=== PATIENT | male | born 1955 | race Caucasian/White ===

== ENCOUNTER → 2016-09-23 07:52 | Outpatient (CLI) | payer BC | END | disposition home or self-care (01) | LOC: D.RAD 07:52 | DX: R13.10 Dysphagia, unspecified (principal) ==

== ENCOUNTER 2017-09-11 07:24 | Day surgery (SDC) | payer BC ==
[~2017-09-11] VITALS: Ht 180.3 cm; Wt 109.1 kg
--- NOTE | ~2017-09-11 | OP ---
PATIENT NAME: TWILA BULLOCK MEDICAL RECORD: [id number] :55 LOCATION:D.OPS ADMISSION DATE: SURGEON: LEROY FITZPATRICK MD DATE OF OPERATION: 09/11/2017 DATE OF OPERATION: 09/11/2017 PREOPERATIVE DIAGNOSES: 1. Gastroesophageal reflux disease. 2. Hiatal hernia. 3. Chronic obstructive pulmonary disease. 4. Hyperlipidemia. 5. Hypothyroidism. POSTOPERATIVE DIAGNOSES : 1. Gastroesophageal reflux disease. 2. Hiatal hernia. 3. Chronic obstructive pulmonary disease. 4. Hyperlipidemia. 5. Hypothyroidism. PROCEDURE: EGD with biopsy. SURGEON: Leroy Fitzpatrick MD REPORT OF PROCEDURE: An Olympus endoscope was advanced through the mouth and esophagus. We passed through the stomach and through the pylorus and into the second portion of the duodenum. There were no inflammatory changes, masses or ulcerations noted in the duodenum. As we pulled back, we could see the pylorus and again no masses, lesions or ulcerations were visualized. A random biopsy was taken of the antrum of the stomach. As we pulled back and looked at the body of the stomach, there was noted to be multiple hyperplastic polyps, but no cancers or adenomatous polyps or masses were seen. There were no ulcerations visualized as we retroflexed the camera, we could see there was a small hiatal hernia present. There was a lot of laxity to the GE junction. We pulled back to the GE junction, measured this out at approximately 40 cm from the teeth. The hiatal hernia looked to be anywhere from 2-4 cm in length, it was difficult to gauge with the patient's respirations. At the GE junction, there was a lot of inflammatory ulcerations with erosions visible. Biopsies were taken times 2 from the GE junction. As we pulled back the scope, there were some other areas of inflammation, the upper third of the esophagus with 2 small patches of inflammatory ulcerations visible. At this point, the insufflation and endoscope were removed. COMPLICATIONS: None. CONDITION: Stable. ANESTHESIA: TIVA. BLOOD LOSS: Minimal. TRANSINT:[id number] Voice Confirmation ID: [id number] DOCUMENT ID: [id number] OPERATIVE REPORT [id number] TWILA BULLOCK LEROY FITZPATRICK MD CC: VIGNESH BRAVO MD [id number] DICTATION DATE: 09/11/17 1232 ORDER PROCESSOR: 09/11/17 1323 REG [facility] [address] [id number]
[2017-09-11] MEDS ORDERED: PROTONIX40 MG PO (08:13)
[2017-09-11] MEDS ORDERED: LEVOTHYROXINE75 MCG PO (08:14)
[2017-09-11] MEDS ORDERED: MOBIC7.5 MG PO (08:14)
[2017-09-11] MEDS ORDERED: LIPITOR20 MG PO (08:14)
[2017-09-11] MEDS ORDERED: ADVAIR 250/501 DISK INH (08:15)
[2017-09-11] MEDS ORDERED: ZOLOFT50 MG PO (08:15)
[2017-09-11] MEDS ORDERED: BAYER CHEWABLE81 MG PO (08:16)
[2017-09-11] MEDS ORDERED: CLARITIN5 MG/5 ML PO (08:17)
[2017-09-11 08:26] VITALS: BP 138/99; Ht 180.3 cm; Wt 109.1 kg
[2017-09-11 08:29] LABS: BASOPHILS 0.4 % (0-2); HEMATOCRIT 44.9 % (42.0-54.0); LYMPHOCYTES 22.7 % (15-50); MCH 34.6 pg (26.0-34.0); MCHC 35.6 g/dL (31.0-37.0); MEAN PLATELET VOLUME 8.7 fL (7.4-10.4); MONOCYTES 8.7 % (2-11); NEUTROPHILS 63.2 % (40-80); PLATELET COUNT 172 10x3/uL (130-400); RBC 4.63 10x6/uL (4.20-6.10); RDW 11.9 % (11.5-14.5); WBC 4.6 10x3/uL (4.8-10.8)
[2017-09-11 08:44] LABS: CALC OSMOLALITY 280 mosm/kg (275-300); CALCIUM 8.8 mg/dL (8.5-10.1); CARBON DIOXIDE 27.3 mmol/L (21.0-32.0); CHLORIDE - SERUM 105 mmol/L (98-107); GLUCOSE 107 mg/dL (74-106); POTASSIUM - SERUM 4.1 mmol/L (3.5-5.1); SODIUM 139 mmol/L (136-145); UREA NITROGEN 22 mg/dL (7-18); eGFR NON AFRICAN AMERICAN 80 mL/min (90-120)
== END 2017-09-11 13:25 | disposition home or self-care (01) ==
LOC: D.OPS 07:24
PROVIDERS: Surgery
DX: K21.9 Gastro-esophageal reflux disease without esophagitis (principal); K44.9 Diaphragmatic hernia without obstruction or gangrene; J44.9 Chronic obstructive pulmonary disease, unspecified; E78.5 Hyperlipidemia, unspecified; E03.9 Hypothyroidism, unspecified; Z01.812 Encounter for preprocedural laboratory examination

== ENCOUNTER 2017-09-22 07:02 | Outpatient (CLI) | payer BC ==
[2017-09-11 08:26] VITALS: BMI 33.5
[~2017-09-22 07:02] MED LIST: ADVAIR 250/501 DISK INH; BAYER CHEWABLE81 MG PO; CLARITIN5 MG/5 ML PO; LEVOTHYROXINE75 MCG PO; LIPITOR20 MG PO; MOBIC7.5 MG PO; PROTONIX40 MG PO; ZOLOFT50 MG PO
== END 2017-09-22 08:20 ==
LOC: D.OPS 07:02
DX: K21.9 Gastro-esophageal reflux disease without esophagitis (principal)

== ENCOUNTER 2017-09-24 09:07 | Day surgery (SDC) | payer BC ==
[~2017-09-24] VITALS: Ht 180.3 cm; Wt 112.8 kg
--- NOTE | ~2017-09-24 | OP ---
PATIENT NAME: TWILA BULLOCK MEDICAL RECORD: [id number] :55 LOCATION:[facility] ADMISSION DATE: SURGEON: JASEN FITZPATRICK MD DATE OF OPERATION: 09/24/2017 PREOPERATIVE DIAGNOSES: 1. Gastroesophageal reflux disease. 2. Hiatal hernia. 3. Chronic obstructive pulmonary disease. 4. Hypertension. 5. Hypothyroidism. POSTOPERATIVE DIAGNOSES: 1. Gastroesophageal reflux disease. 2. Hiatal hernia. 3. Chronic obstructive pulmonary disease. 4. Hypertension. 5. Hypothyroidism. PROCEDURE: Laparoscopic Elda fundoplication with hiatal hernia repair. SURGEON: Jasen Fitzpatrick MD REPORT OF PROCEDURE: The patient's abdomen was prepped and draped in sterile fashion. A Veress needle was inserted in the left upper quadrant and the abdomen was insufflated. An 11-mm Visiport trocar was inserted in the midline just above the umbilicus. I could see the Veress needle and there was no sign of any damage to bowel or surrounding structures. An 11-mm trocar was then placed in the left subcostal region under direct visualization, a 5-mm trocar was placed in the epigastrium, a 5-mm trocar was placed in the left lateral abdomen, and a final 5-mm trocar was placed in the right lateral subcostal region under direct visualization. A liver retractor was inserted and the left lobe of the liver was elevated. At this point, we could see there is about a quarter to a third of the stomach was extending up into the patient's chest cavity through the esophageal hiatus. We started our dissection on the lesser curvature of the stomach taking this down using Harmonic scalpel. There was a large vessel that was running through this and we initially tried to preserve this vessel, but it made the dissection so difficult with the patient's high fat content that we eventually just clipped it proximally and distally and transected it with Harmonic scalpel. We continued our dissection up to the right side of the right darell and dissected the esophagus off the surrounding tissues up into the thoracic cavity. Once we had gone as far as we could, then we came to the greater curvature of the stomach and took down the short gastric using Harmonic scalpel. We continued dissection to the left side of the right darell. Again, we extended our dissection up into the chest cavity and at this point, we had a 360-degree inspection around the patient's esophagus. At this point, the stomach and esophagus rested in the abdominal cavity with ease. The esophageal hiatus was reapproximated with interrupted 0 Polydek times 3. We then performed a 360-degree posterior Elda wrap of the fundus of the stomach around the distal esophagus. This was performed with interrupted 0 Polydek times 3 with the top and the bottom suture incorporating a bite of the esophagus. At this point, the wrap appeared to be in good position and did not appear to be too tight. The indwelling orogastric tube was removed with ease. We inspected the area and assured there was no sign of any active bleeding, which there was none. We irrigated out through the left upper quadrant and OPERATIVE REPORT [id number] TWILA BULLOCK assured there was no sign of any tissue necrosis or bleeding. At this point, the 11-mm trocar site fascia were closed with an 0 Vicryl using a Joseph-Rosa suture passer device. The ports and insufflation were then removed. The wounds were then infused with a total of 10 mL of 0.25% Marcaine plain and then closed with subcutaneous 5-0 Monocryl. COMPLICATIONS: None. CONDITION: Stable. ANESTHESIA: General endotracheal and local. BLOOD LOSS: 50 mL. TRANSINT:[id number] Voice Confirmation ID: [id number] DOCUMENT ID: [id number] JASEN FITZPATRICK MD CC: [id number] DICTATION DATE: 09/24/17 1345 [facility] PROVIDER: 09/24/17 1420 REG [facility] [address] [place] [address]
[2017-09-24 10:05] VITALS: BP 149/93; BMI 34.6
[2017-09-24 10:47] LABS: BASOPHILS 0.4 % (0-2); EOSINOPHILS 6.2 % (0-7); HEMATOCRIT 44.8 % (42.0-54.0); HEMOGLOBIN 16.3 g/dL (13.5-17.5); IMMATURE GRANULOCYTES 0.2 % (0-5); LYMPHOCYTES 24.5 % (15-50); MCH 34.8 pg (26.0-34.0); MCHC 36.4 g/dL (31.0-37.0); MCV 95.5 fL (80.0-100.0); MEAN PLATELET VOLUME 8.8 fL (7.4-10.4); MONOCYTES 9.2 % (2-11); NEUTROPHILS 59.5 % (40-80); PLATELET COUNT 200 10x3/uL (130-400); RBC 4.69 10x6/uL (4.20-6.10)
[2017-09-24 11:02] LABS: CALC OSMOLALITY 278 mosm/kg (275-300); CALCIUM 8.7 mg/dL (8.5-10.1); CARBON DIOXIDE 28.8 mmol/L (21.0-32.0); CHLORIDE - SERUM 102 mmol/L (98-107); CREATININE - SERUM 0.9 mg/dL (0.6-1.3); GLUCOSE 96 mg/dL (74-106); SODIUM 138 mmol/L (136-145); UREA NITROGEN 20 mg/dL (7-18); eGFR NON AFRICAN AMERICAN > 90 mL/min (90-120)
[2017-09-24 23:10] VITALS: BP 123/74
[2017-09-25 02:31] VITALS: BP 123/74; Ht 180.3 cm; Wt 112.8 kg
[2017-09-25 02:43] VITALS: BP 117/72
[2017-09-25 05:03] LABS: BASOPHILS 0 % (0-2); EOSINOPHILS 0 % (0-7); HEMATOCRIT 41.1 % (42.0-54.0); HEMOGLOBIN 14.7 g/dL (13.5-17.5); IMMATURE GRANULOCYTES 0.2 % (0-5); MCH 34.3 pg (26.0-34.0); MCHC 35.8 g/dL (31.0-37.0); MCV 95.8 fL (80.0-100.0); MEAN PLATELET VOLUME 8.9 fL (7.4-10.4); MONOCYTES 10.4 % (2-11); NEUTROPHILS 82.4 % (40-80); PLATELET COUNT 195 10x3/uL (130-400); RBC 4.29 10x6/uL (4.20-6.10)
[2017-09-25 05:06] LABS: CALC OSMOLALITY 278 mosm/kg (275-300); CALCIUM 7.8 mg/dL (8.5-10.1); CARBON DIOXIDE 27.8 mmol/L (21.0-32.0); CHLORIDE - SERUM 103 mmol/L (98-107); CREATININE - SERUM 0.9 mg/dL (0.6-1.3); GLUCOSE 118 mg/dL (74-106); POTASSIUM - SERUM 4.4 mmol/L (3.5-5.1); SODIUM 138 mmol/L (136-145); UREA NITROGEN 19 mg/dL (7-18); eGFR NON AFRICAN AMERICAN > 90 mL/min (90-120)
[2017-09-25 05:10] LABS: WBC 9.6 10x3/uL (4.8-10.8)
[2017-09-25 05:13] VITALS: BP 108/52
[2017-09-25 07:59] VITALS: BP 138/77
[2017-09-25] MEDS ORDERED: REGLAN10 MG PO (11:58)
[2017-09-25 12:34] VITALS: BP 144/75
== END 2017-09-25 16:46 | disposition home or self-care (01) ==
LOC: D.OPS 09:07 → D.MS 09:07 → D.OPS 13:45 → D.PAN 13:45 → D.MS 16:07 → D.OPS 09-25 16:46
PROVIDERS: Surgery
DX: K21.9 Gastro-esophageal reflux disease without esophagitis (principal); I10 Essential (primary) hypertension; E03.9 Hypothyroidism, unspecified; J44.9 Chronic obstructive pulmonary disease, unspecified; K44.9 Diaphragmatic hernia without obstruction or gangrene; Z01.812 Encounter for preprocedural laboratory examination